=== PATIENT | male | born 1985 | race Two or more races ===

== ENCOUNTER 2018-05-11 11:46 | Emergency (ER) | payer SELFPAY ==
[~2018-05-11] VITALS: Ht 165.1 cm; Wt 97.5 kg
[2018-05-11 12:20] VITALS: BP 114/73
== END 2018-05-11 14:44 | disposition home or self-care (01) ==
LOC: EDBD 11:46 → ER 11:52
DX: S13.9XXA Sprain of joints and ligaments of unspecified parts of neck, initial encounter (principal); S20.219A Contusion of unspecified front wall of thorax, initial encounter; V43.62XA Car passenger injured in collision with other type car in traffic accident, initial encounter; Y93.89 Activity, other specified; Y99.8 Other external cause status; Y92.410 Unspecified street and highway as the place of occurrence of the external cause
CPT/HCPCS: 70450; 71250; 72125; 94761